=== PATIENT | male | born 1985 | race Caucasian/White ===

== ENCOUNTER → 2024-02-06 13:03 | Outpatient (REF) | payer OTHER, SELFPAY | LOC: RAD 13:03 | PROVIDERS: ATTENDING PHYSICIAN Family Medicine | DX: R59.0 Localized enlarged lymph nodes (principal) | CPT/HCPCS: 76536 ==

== ENCOUNTER → 2024-02-19 08:04 | Outpatient (REF) | payer OTHER, SELFPAY | LOC: RAD 08:04 | PROVIDERS: ATTENDING PHYSICIAN Family Medicine | DX: R59.9 Enlarged lymph nodes, unspecified (principal) | CPT/HCPCS: 70491; Q9967 ==

== ENCOUNTER 2024-04-09 06:20 | Day surgery (SDC) | payer OTHER, SELFPAY ==
[2024-04-09] VITALS (7 sets, daily range): BP systolic 120–157; BP diastolic 65–85; BMI 31.2
[2024-04-09] MEDS: NORMOSOL-R 1000 IV (10:49)
== END 2024-04-09 16:25 | disposition home or self-care (01) ==
LOC: SDS 06:20
PROVIDERS: ATTENDING PHYSICIAN Otolaryngology
DX: C82.01 Follicular lymphoma grade I, lymph nodes of head, face, and neck (principal)
CPT/HCPCS: 38510; 88305; 88333; 88341; 88342

== ENCOUNTER → 2024-05-19 07:08 | Outpatient (REF) | payer OTHER, SELFPAY ==
[2024-05-19 07:27] LABS: % Basophils 0.7 % (0-2); % Immature Granulocytes 0.1 % (0-0.5); % Lymphocytes 38.3 % (20.5-51.1); % Monocytes 9.5 % (1.7-9.3); % Neutrophils 48.4 % (42.2-75.2); Absolute Basophils 0.1 10^3/uL (0-0.2); Absolute Eosinophils 0.2 10^3/uL (0-0.7); Absolute Lymphocytes 2.6 10^3/uL (1.2-3.4); Absolute Monocytes 0.6 10^3/uL (0.1-0.6); Absolute Neutrophils 3.2 10^3/uL (1.4-6.5); Hematocrit 42.1 % (39.0-52.0); Hemoglobin 14.6 g/dL (13.0-18.0); Mean Corp Hgb Conc. 34.7 g/dL (33.0-37.0); Mean Corpuscular Hgb 29.7 pg (27.0-31.0); Mean Corpuscular Volume 85.7 fL (80.0-94.0); Mean Platelet Volume 9.9 fL (7.4-10.4); Nucleated Red Blood Cells % 0 % (-); Platelet Count 212 10^3/uL (130-400); Red Blood Cell Count 4.91 10^6/uL (4.70-6.10); Red Cell Dist. Width 12.2 % (11.5-14.5); White Blood Cell Count 6.7 10^3/uL (4.8-10.8)
[2024-05-19 07:30] VITALS: BP 134/88; BP_SYST 49
[2024-05-19 07:35] LABS: INR 0.99; PT 12.9 Sec (11.4-14.6)
[2024-05-19 08:54] VITALS: BP 129/83
== END ==
LOC: RADI 07:08
PROVIDERS: ATTENDING PHYSICIAN Internal Medicine Hematology & Oncology; FAMILY PHYSICIAN Family Medicine
DX: C82.91 Follicular lymphoma, unspecified, lymph nodes of head, face, and neck (principal); Z01.812 Encounter for preprocedural laboratory examination
CPT/HCPCS: 88305; 88311; 88312; 36415; 38222; 77012; 85025; 85610; 88313

== ENCOUNTER → 2024-05-20 11:45 | Outpatient (REF) | payer OTHER, SELFPAY | LOC: PET 11:45 | PROVIDERS: ATTENDING PHYSICIAN Internal Medicine Hematology & Oncology | DX: C82.91 Follicular lymphoma, unspecified, lymph nodes of head, face, and neck (principal) | CPT/HCPCS: 78815; A9552 ==

== ENCOUNTER → 2024-11-10 08:15 | Outpatient (REF) | payer OTHER, SELFPAY | LOC: RAD 08:15 | PROVIDERS: ATTENDING PHYSICIAN Internal Medicine Hematology & Oncology; FAMILY PHYSICIAN Family Medicine | DX: C82.91 Follicular lymphoma, unspecified, lymph nodes of head, face, and neck (principal) | CPT/HCPCS: 71260; 74177; Q9967 ==

== ENCOUNTER → 2025-05-11 07:05 | Outpatient (REF) | payer OTHER, SELFPAY | LOC: RAD 07:05 | PROVIDERS: ATTENDING PHYSICIAN Internal Medicine Hematology & Oncology; FAMILY PHYSICIAN Family Medicine | DX: C82.91 Follicular lymphoma, unspecified, lymph nodes of head, face, and neck (principal) | CPT/HCPCS: 71260; 74177; Q9967 ==